=== PATIENT | male | born 1980 | race Caucasian/White ===

== ENCOUNTER 2018-05-09 06:13 | Day surgery (SDC) | payer BC ==
--- NOTE | 2018-05-08 08:48 | HP ---
PRESENT ILLNESS: The patient is a 37-year-old right-hand dominant male, who has a several-month history of chronic lateral epicondylitis of the right elbow, unresponsive to conservative treatment including rest, restriction of activities, anti-inflammatory medications, and several injections which have only provided temporary relief. Pain is now interfering with day-to-day activities including eating, getting dressed and working. PAST HISTORY: The patient is otherwise in good health. He has recently had a kidney stone due to unknown causes, which had resolved. He has taken meloxicam and Tylenol No.3 for pain, for his current symptoms. He is otherwise in good health and normally takes no routine medications and has no known allergies. FAMILY HISTORY: Otherwise unremarkable. SOCIAL HISTORY: Otherwise unremarkable. REVIEW OF SYSTEMS: Otherwise unremarkable. PHYSICAL EXAMINATION: GENERAL: Reveals a healthy male. HEENT: Unremarkable. NECK: Supple. CHEST: Clear. HEART: Regular and rhythm. ABDOMEN: Soft, nontender. RECTAL: Deferred. GENITAL: Deferred. EXTREMITIES: Pertinent findings were related to the right elbow. There is no swelling. There is tenderness over the lateral epicondyle and common extensor origin. Range of motion is 5 to 120 degrees. There is pain with motion beyond these limits. There is no instability. There is pain with extension of the wrist against resistance. NEUROVASCULAR: Intact. DIAGNOSTIC STUDIES: X-rays of the elbow are normal. IMPRESSION: Chronic lateral epicondylitis, right elbow. PLAN: Lateral release with partial lateral epicondylectomy. The nature of the surgery, length, recovery, and potential complications such as infection, loss of motion, incomplete relief, nerve injury, recurrence, and need for additional treatment had been discussed in detail. Job ID: [id number]
[2018-05-08 14:13] VITALS: BMI 26.4
[2018-05-09] MEDS ORDERED: CEFAZOLIN 2 GM/50 ML BAG ONE (08:06)
[2018-05-09] MEDS ORDERED: Midazolam HCl 2 mg/2 ml Vial ONE (08:06)
[2018-05-09] MEDS ORDERED: Fentanyl 250 MCG/5 ML VIAL ONE (08:29)
[2018-05-09] MEDS ORDERED: Bupivacaine HCl 0.5%/Epinephrine 1:200,000/PF 30 ml Vial ONE (09:00)
[2018-05-09] MEDS ORDERED: HYDROmorphone 2 MG/ML VIAL ONE (10:24)
--- NOTE | 2018-05-09 11:31 | OP ---
DATE OF PROCEDURE: 05/09/2018 ANESTHESIA: General. PREOPERATIVE DIAGNOSIS: Chronic lateral epicondylitis, right elbow. POSTOPERATIVE DIAGNOSIS: Chronic lateral epicondylitis, right elbow. PROCEDURES PERFORMED: Lateral epicondylectomy and lateral release, right elbow. DESCRIPTION OF PROCEDURE: After satisfactory anesthesia was induced in the supine position, the patient was prepped and draped in the routine manner. The right arm was elevated, exsanguinated with an Esmarch bandage and the tourniquet was inflated to 250 mmHg. Lateral curvilinear incision was made centered over the lateral epicondyle, carried down through the subcutaneous tissues, bleeding points were controlled with Bovie cautery. Deep fascia was incised in-line with the skin incision. The common extensor origin was approximately detached from the lateral epicondyle and there was abundant inflammation, chronic inflammatory process, especially in the area of the extensor carpi radialis brevis. The attachment was detached and portion of the chronic inflammatory tissue was excised and the remainder of the tendon lateral retracted distally. Dissection was carried down to open the joint. The articular surfaces were normal. There was a moderate amount of abundant so-called synovial fringe. This appeared to be more prominent than normal. I could not totally tell this was truly pathologic or if I did excise the synovium. The articular surfaces were normal. The lateral epicondyle was then excised, flushed with the shaft of the humerus with a small osteotome and rongeur and smoothed with a rasp. The wound was copiously irrigated with normal saline. The joint and subcutaneous tissues and skin were infiltrated with a total of 30 mL of 0.5% Marcaine with epinephrine. The joint capsule was closed with interrupted #1 Vicryl. The common extensor origin was left attached to the lateral retracted distally. The fascia was closed with interrupted #1 Vicryl. Subcutaneous tissue was closed with interrupted 2-0 Vicryl and the skin closed with a running subcuticular 3-0 V-Loc and SurgiSeal skin adhesive. Sterile bulky compressive dressing was applied. The tourniquet deflated after approximately 34 minutes. Hand promptly pinked up and the patient was immobilized in a long-arm plaster splint and arm sling. He was awakened, taken to the recovery room in stable condition. There were no apparent intraoperative complications. Estimated blood loss was negligible. The patient will be discharged home in satisfactory condition to use ice and elevation, given written cast care instructions. He is given a prescription for Tylenol No. 4 for pain, 60 tablets. He will be rechecked in my office in 7 to 10 days or sooner if there are any problems prior to that time. Job ID: [id number]
[2018-05-09] MEDS ORDERED: HYDROcodone/Acetaminophen 5/325 mg Tablet ONE (12:27)
[2018-05-09] MEDS ORDERED: Ondansetron PF 4 MG/2 ML Vial ONE (15:39)
[2018-05-09] MEDS ORDERED: PROPOFOL 200 MG/20 ML VIAL ONE (15:39)
[2018-05-09] MEDS ORDERED: Lidocaine 1% PF 5 ML VIAL ONE (15:39)
== END 2018-05-09 12:54 | disposition home or self-care (01) ==
LOC: SDC 06:13
PROVIDERS: ATTEND Orthopaedic Surgery
PROC: 0PBF0ZZ Excision of Right Humeral Shaft, Open Approach (ICD-10-PCS; principal; 2018-05-09)
PROC: 0RNM0ZZ Release Left Elbow Joint, Open Approach (ICD-10-PCS; principal; 2018-05-09)
DX: M77.11 Lateral epicondylitis, right elbow (principal); Z79.1 Long term (current) use of non-steroidal anti-inflammatories (NSAID)
CPT/HCPCS: 96374; J0670; J1170; J2001; J2250; J2405; J2704; J3010

== ENCOUNTER 2021-05-17 17:43 | Outpatient (CLI) | payer BC ==
[2021-05-17 19:05] LABS: #Basophils 0.1 10x3/uL (0.0-0.2); #Eosinphils 0.1 10x3/uL (0.0-0.5); #Monocytes 0.7 10x3/uL (0.0-1.1); #Neutrophils 4.7 10x3/uL (1.5-8.4); %Basophils 0.6 % (0.0-2.0); %Eosinophils 0.7 % (0.0-6.0); %Lymphocytes 41.2 % (18.0-47.0); %Monocytes 7.7 % (0.0-10.0); %Neutrophils 49.7 % (40.0-75.0); Hemoglobin 14.8 g/dL (13.5-17.5); Mean Corpuscular HGB CONC 33.5 g/dL (32.0-36.0); Mean Corpuscular Hemoglobin 29.6 pg (27.0-33.0); Mean Corpuscular Volume 88.4 fl (81.2-95.1); Mean Platelet Volume 10.6 fl (7.4-10.4); Platelet Count 225 10x3/uL (150-450); RBC Distribution Width 11.9 % (11.5-14.5); White Blood Cell (WBC) Count 9.5 10x3/uL (3.5-10.5)
[2021-05-18 17:56] LABS: SARS-CoV-2 PCR by NAA Not Detected (NotDetected)
== END 2021-05-17 17:44 | disposition home or self-care (01) ==
LOC: LABBT 17:43
PROVIDERS: ATTEND Orthopaedic Surgery
DX: Z01.812 Encounter for preprocedural laboratory examination (principal); M77.12 Lateral epicondylitis, left elbow; Z20.822 Contact with and (suspected) exposure to COVID-19
CPT/HCPCS: 85025; U0003; U0005

== ENCOUNTER 2021-05-20 07:12 | Day surgery (SDC) | payer OTHER ==
[2021-05-17 12:44] VITALS: BMI 26.4
[2021-05-20] MEDS ORDERED: Famotidine/PF 20 mg/2ml Vial ONE (09:48)
[2021-05-20] MEDS ORDERED: Fentanyl 100 MCG/2 ML VIAL ONE ×3 (09:48→11:24)
[2021-05-20] MEDS ORDERED: ceFAZolin 2 GM/Dextrose 50 ML IVPB ONE (09:52)
[2021-05-20] MEDS ORDERED: Ketorolac Tromethamine 30 MG/ML VIAL ONE (10:07)
[2021-05-20] MEDS ORDERED: Ondansetron PF 4 MG/2 ML Vial ONE (10:07)
[2021-05-20] MEDS ORDERED: Lidocaine 1% PF 5 ML VIAL ONE (10:07)
[2021-05-20] MEDS ORDERED: PROPOFOL 200 MG/20 ML VIAL ONE (10:07)
[2021-05-20] MEDS ORDERED: Xylocaine 1% w/ Epi 1:100K 10 ML VIAL ONE (10:22)
[2021-05-20] MEDS ORDERED: Meperidine HCl/PF 25 MG/ML VIAL ONE (11:19)
[2021-05-20] MEDS ORDERED: HYDROcodone/Acetaminophen 5/325 mg Tablet ONE (12:44)
== END 2021-05-20 13:15 | disposition home or self-care (01) ==
LOC: SDC 07:12
PROVIDERS: ATTEND Orthopaedic Surgery
PROC: 0PBG0ZZ Excision of Left Humeral Shaft, Open Approach (ICD-10-PCS; principal; 2021-05-20)
PROC: 0LN40ZZ Release Left Upper Arm Tendon, Open Approach (ICD-10-PCS; principal; 2021-05-20)
DX: M77.12 Lateral epicondylitis, left elbow (principal); Z79.899 Other long term (current) drug therapy
CPT/HCPCS: J0690; J1885; J2175; J2405; J2704; J3010; S0028

== ENCOUNTER 2022-03-07 08:21 | Outpatient (CLI) | payer OTHER ==
[2022-03-07 09:43] LABS: #Basophils 0.1 10x3/uL (0.0-0.2); #Monocytes 0.4 10x3/uL (0.0-1.1); #Neutrophils 3.2 10x3/uL (1.5-8.4); %Basophils 0.9 % (0.0-2.0); %Eosinophils 0.7 % (0.0-6.0); %Lymphocytes 36.8 % (18.0-47.0); %Neutrophils 54.3 % (40.0-75.0); Hemoglobin 15.8 g/dL (13.5-17.5); Mean Corpuscular HGB CONC 36.3 g/dL (32.0-36.0); Mean Corpuscular Hemoglobin 31.2 pg (27.0-33.0); Mean Platelet Volume 10.8 fl (7.4-10.4); Platelet Count 217 10x3/uL (150-450); RBC Distribution Width 11.6 % (11.5-14.5); Red Blood Cell (RBC) Count 5.06 10x6/uL (4.32-5.72); White Blood Cell (WBC) Count 5.9 10x3/uL (3.5-10.5)
[2022-03-07 09:53] LABS: Anion Gap 14 mmol/L (10-20); BUN (Urea Nitrogen) 13 mg/dL (8.9-20.6); Calc. Creatinine Clearance 0 mL/min (70-130); Calcium 9.4 mg/dL (7.8-10.44); Carbon Dioxide 25 mmol/L (22-29); Chloride 105 mmol/L (98-107); Estimated GFR 113; Glucose 91 mg/dL (70-105); Potassium 4.7 mmol/L (3.5-5.1); Sodium 139 mmol/L (136-145)
== END 2022-03-07 08:22 | disposition home or self-care (01) ==
LOC: LABBT 08:21
PROVIDERS: ATTEND Surgery
DX: Z01.812 Encounter for preprocedural laboratory examination (principal); K40.90 Unilateral inguinal hernia, without obstruction or gangrene, not specified as recurrent
CPT/HCPCS: 80048; 85025

== ENCOUNTER 2022-03-10 06:58 | Day surgery (SDC) | payer OTHER ==
[2022-03-09 12:16] VITALS: BMI 25.6
[2022-03-10] MEDS ORDERED: Bupivacaine/Epinephrine 0.25% 30 ML VIAL ONE (09:18)
[2022-03-10] MEDS ORDERED: fentaNYL PF 100 MCG/2 ML SYRINGE ONE (09:24)
[2022-03-10] MEDS ORDERED: SUGAMMADEX SODIUM 200 MG/2 ML VIAL ONE (09:24)
[2022-03-10] MEDS ORDERED: Midazolam HCl 2 mg/2 ml Vial ONE (09:27)
[2022-03-10] MEDS ORDERED: Sodium Chloride 0.9% 100 ML ONE (09:28)
[2022-03-10] MEDS ORDERED: CEFAZOLIN 2 GM VIAL ONE (09:28)
[2022-03-10] MEDS ORDERED: Ondansetron PF 4 MG/2 ML Vial ONE (09:42)
[2022-03-10] MEDS ORDERED: PROPOFOL 200 MG/20 ML VIAL ONE (09:42)
[2022-03-10] MEDS ORDERED: Ketorolac Tromethamine 30 MG/ML VIAL ONE (09:42)
[2022-03-10] MEDS ORDERED: Rocuronium Bromide 10 MG/ML (10ML VIAL) ONE (09:42)
[2022-03-10] MEDS ORDERED: Dexamethasone 20 MG/5 ML VIAL ONE (09:42)
[2022-03-10] MEDS ORDERED: FENTANYL 50 MCG/ML 1 ML VIAL ONE ×5 (11:11→11:54)
[2022-03-10] MEDS ORDERED: HYDROcodone/Acetaminophen 5/325 mg Tablet ONE (12:48)
== END 2022-03-10 14:36 | disposition home or self-care (01) ==
LOC: SDC 06:58
PROVIDERS: ATTEND Surgery
PROC: 0YUA4JZ Supplement Bilateral Inguinal Region with Synthetic Substitute, Percutaneous Endoscopic Approach (ICD-10-PCS; principal; 2022-03-10)
PROC: 8E0W4CZ Robotic Assisted Procedure of Trunk Region, Percutaneous Endoscopic Approach (ICD-10-PCS; principal; 2022-03-10)
DX: K40.20 Bilateral inguinal hernia, without obstruction or gangrene, not specified as recurrent (principal); Z79.899 Other long term (current) drug therapy
CPT/HCPCS: C1781; J1100; J1885; J2250; J2405; J2704; J3010; J3490